=== PATIENT | female | born 1960 | race Caucasian/White ===

== ENCOUNTER 2020-07-07 09:19 | Day surgery (SDC) | payer BC ==
[2020-07-06 11:47] VITALS: BMI 31.1
[2020-07-07] MEDS ORDERED: Fentanyl 100 MCG/2 ML VIAL ONE (09:55)
[2020-07-07] MEDS ORDERED: Lidocaine 1% PF 5 ML VIAL ONE (10:33)
[2020-07-07] MEDS ORDERED: Ondansetron PF 4 MG/2 ML Vial ONE (10:33)
[2020-07-07] MEDS ORDERED: PROPOFOL 200 MG/20 ML VIAL ONE (10:33)
[2020-07-07] MEDS ORDERED: Lidocaine 1% w/Epinephrine 1:100K 20 ML VIAL ONE (10:36)
[2020-07-07] MEDS ORDERED: AFRIN NASAL MIST 15 ML BOT ONE (10:48)
--- NOTE | 2020-07-07 15:37 | OP ---
DATE OF PROCEDURE: 07/07/2020 PREOPERATIVE DIAGNOSES: 1. Bilateral nasal valve collapse. 2. Nasal obstruction. POSTOPERATIVE DIAGNOSES: 1. Bilateral nasal valve collapse. 2. Nasal obstruction. PROCEDURES PERFORMED: Bilateral repair of lateral nasal wall. ESTIMATED BLOOD LOSS: Less than 5 mL. COMPLICATIONS: None. ANESTHESIA: LMA. DESCRIPTION OF PROCEDURE: The patient was taken to operating and placed supine on the table. LMA anesthesia was obtained by the anesthesia staff. The patient was prepped and draped in standard surgical fashion. Following this, the external nose and internal nose was marked with marking pens. The nasal bones were outlined and the areas of lower lateral cartilage collapse and valve collapse were identified. A small incision was made in the nasal cavity with an 11 blade and a subperiosteal pocket was created overlying the nasal bones bilaterally. The implant was inserted overlying the nasal bones superiorly and inferiorly, supported the lower lateral cartilages. The incision was closed with 6-0 gut stitch. The patient tolerated the procedure well. Job ID: [id number]
== END 2020-07-07 13:27 | disposition home or self-care (01) ==
LOC: SDC 09:19
PROVIDERS: ATTEND Otolaryngology Plastic Surgery within the Head & Neck
PROC: 09QM8ZZ Repair Nasal Septum, Via Natural or Artificial Opening Endoscopic (ICD-10-PCS; principal; 2020-07-07)
DX: J34.89 Other specified disorders of nose and nasal sinuses (principal); J32.9 Chronic sinusitis, unspecified; J34.3 Hypertrophy of nasal turbinates; J30.9 Allergic rhinitis, unspecified; Z79.899 Other long term (current) drug therapy; Z87.891 Personal history of nicotine dependence
CPT/HCPCS: 36415; 84702; 85014; J2405; J2704; J3010